=== PATIENT | male | born 1970 | race Caucasian/White ===

== ENCOUNTER 2018-06-15 11:40 | Emergency (ER) | payer SELFPAY ==
[2018-06-15] MEDS ORDERED: NA CHLORIDE 0.9% 1,000 ML ONE ×2 (12:28→13:02)
[2018-06-15] MEDS ORDERED: METOPROLOL TARTRATE 5 MG/5 ML INJ IV ONE (12:28)
[2018-06-15 12:45] LABS: Absolute Monocytes 0.7 K/uL (0.1-1.3); Absolute Neutrophil 8.8 K/uL (1.8-8.0); Basophils % 0.6 % (0-1.3); Eosinophils % 0.4 % (0-4.4); Hematocrit 52.2 % (39.6-49.0); Lymphocytes % 17.3 % (15.3-44.8); Monocytes % 5.9 % (3.3-12.3); RBC Red Blood Cell Count 5.84 M/uL (4.33-5.43)
[2018-06-15 12:50] LABS: Protime INR 1.17
--- NOTE | 2018-06-15 13:00 | RAD REPORT ---
EXAM DESCRIPTION: RAD - Chest Single View - 06/15/2018 12:53 pm CLINICAL HISTORY: PALPITATIONS Chest pain. COMPARISON: No comparisons FINDINGS: Portable technique limits examination quality. Mild interstitial pulmonary edema with small bilateral pleural effusions suspected. Poorly defined marissa ng opacity also noted medial right lung base. The heart is mildly prominent size. No displaced fractu res. IMPRESSION: Mild CHF versus volume overload suspected. Opacity medial right lung base may represent superimposed pneumonia or atelectasis.
[2018-06-15] MEDS ORDERED: Phenylephrine HCl 10 MG/ML 1 ML VIAL ONE ×2 (13:07→15:48)
[2018-06-15] MEDS ORDERED: GLUCAGON 1 MG/VIAL ONE (13:08)
[2018-06-15] MEDS ORDERED: NOREPINEPHRINE 4mg/D5W 250mL 4 MG/250 ML BAG IV ONE (13:11)
[2018-06-15] MEDS ORDERED: ONDANSETRON 4 MG/2 ML VIAL ONE (13:13)
[2018-06-15] MEDS ORDERED: NA CHLORIDE 0.9% 100 ML IV ONE ×2 (13:13)
[2018-06-15] MEDS ORDERED: RSI MEDICATION KIT IV ONE (13:18)
[2018-06-15 13:19] LABS: ALT/SGPT 40 U/L (12-78); AST/SGOT 15 U/L (15-37); Albumin 3.9 g/dL (3.4-5.0); Alkaline Phosphatase 99 U/L (45-117); BUN Blood Urea Nitrogen 12 mg/dL (7-18); Bicarbonate 26 mmol/L (21-32); Bilirubin Direct 0.3 mg/dL (0-0.2); Bilirubin Total 1.9 mg/dL (0.2-1.0); Glucose Level 120 mg/dL (74-106); Magnesium 2.4 mg/dL (1.8-2.4); NT PRO-BNP 2964 pg/mL (<125); Potassium 3.9 mmol/L (3.5-5.1); Protein, Total 7.5 g/dL (6.4-8.2); Sodium Level 142 mmol/L (136-145); Troponin (Emerg Dept Use Only) < 0.02 ng/mL (0.0-0.045)
[2018-06-15] MEDS ORDERED: ENOXAPARIN 80 MG/0.8 ML SQ ONE (13:23)
[2018-06-15] MEDS ORDERED: HEPARIN 5000 UNIT/ML 1 ML VIAL ONE (13:45)
[2018-06-15] MEDS ORDERED: HEPARIN/D5W 25,000 UNIT/500 ML BAG IV ONE (13:46)
[2018-06-15] MEDS ORDERED: DOBUTAMINE 250 MG/250 ML BAG IV ONE (13:55)
[2018-06-15 14:37] LABS: Arterial Blood Carboxyhemoglob 0.4 % (0-1.5); Blood Gas Oxyhemoglobin 9.9 % (94-97)
--- NOTE | 2018-06-15 14:55 | RAD REPORT ---
EXAM DESCRIPTION: CT - Chest For Pe Angio - 06/15/2018 2:29 pm CLINICAL HISTORY: Chest pain COMPARISON: None. TECHNIQUE: Dynamically enhanced axial 3 mm thick images of the chest were obtained during administra tion of <100> mL Isovue 370 IV contrast. Coronal and oblique reconstruction images were generated and reviewed. Exam utilizes a protocol for optimal evaluation of pulmonary arterial tree. Maximum intensity projections 3D imaging was utilized All CT scans are performed using dose optimization technique as appropriate and may include automated exposure control or mA/KV adjustment according to patient size. FINDINGS: A pulmonary embolus is not seen. A thoracic aortic aneurysm is not noted. Small to moderate bilateral pleural effusions with bibasilar atelectasis. Minimal opacities are prese nt within the upper lobes A pericardial effusion is not seen. IMPRESSION: Negative for a pulmonary embolism. Small to moderate bilateral pleural effusions
[2018-06-15] MEDS ORDERED: D5W 250 ML IV ONE (15:48)
--- NOTE | 2018-06-15 16:08 | ER ---
Nurse's Notes [facility] Name: Pan Fonseca Age: 48 yrs Sex: Male : 1970 Arrival Date: 06/15/2018 Time: 11:46 Bed 3 Private MD: None, None Diagnosis: Cardiomyopathy;Cardiogenic shock Presentation: 06/15 12:05 Presenting complaint: Patient states: Chest tightness and shortness of breath since ajJune 12. States that he was having some flu like symptoms and thought it was because of that, but his flu symptoms have now resolved and he is still having the chest tightness and shortness of breath. Patient reports that he was seen at [place] [facility] yesterday and the doctor told him he needed to be transferred to the hospital and admitted, but he left AMA. Patient denies pain at this time, reports palpitations and shortness of breath that is worse when he lays down or bends over. 12:05 Transition of care: patient was not received from another setting of care. Onset of aj1 symptoms was June 12, 2018. Risk Assessment: Do you want to hurt yourself or someone else? Patient reports no desire to harm self or others. Initial Sepsis Screen: Does the patient meet any 2 criteria? HR > 90 bpm. No. Patient's initial sepsis screen is negative. Does the patient have a suspected source of infection? No. Patient's initial sepsis screen is negative. Care prior to arrival: None. 12:05 Method Of Arrival: Wheelchair aj1 12:05 Acuity: JOHN 2 aj1 Triage Assessment: 12:48 General: Appears in no apparent distress. uncomfortable, Behavior is cooperative, aj1 anxious. Pain: Denies pain. Historical: - Allergies: 12:48 No Known Allergies; aj1 - Home Meds: 12:48 None [Active]; aj1 - PMHx: 12:48 None; aj1 - PSHx: 12:48 None; aj1 - Immunization history:: Flu vaccine is not up to date. - Social history:: Smoking status: Patient/guardian denies using tobacco. - Ebola Screening: : Patient denies travel to an Ebola-affected area in the 21 days before illness onset. Screenin:05 Abuse screen: Denies threats or abuse. Denies injuries from another. Nutritional aj1 screening: No deficits noted. Tuberculosis screening: No symptoms or risk factors identified. 18:11 Fall Risk No fall in past 12 months (0 pts). No secondary diagnosis (0 pts). IV access aj1 (20 points). Ambulatory Aid- None/Bed Rest/Nurse Assist (0 pts). Gait- Normal/Bed Rest/Wheelchair (0 pts) Mental Status- Oriented to own ability (0 pts). Total Berkowitz Fall Scale indicates No Risk (0-24 pts). Assessment: 12:10 General: Appears in no apparent distress. comfortable, Behavior is calm, cooperative, aj1 appropriate for age. Pain: Denies pain. Neuro: Level of Consciousness is awake, alert, obeys commands. Cardiovascular: Reports palpitations, shortness of breath, Heart tones S1 S2 present Patient's skin is warm and dry. Rhythm is atrial fibrillation with rapid ventricular response. Respiratory: Reports shortness of breath that is worse when he bends over or lays down Airway Respiratory effort is even, unlabored, Respiratory pattern is regular, symmetrical. GI: No signs and/or symptoms were reported involving the gastrointestinal system. Abdomen is flat, non-distended. : No signs and/or symptoms were reported regarding the genitourinary system. EENT: No signs and/or symptoms were reported regarding the EENT system. Derm: No signs and/or symptoms reported regarding the dermatologic system. Skin is pink, warm \T\ dry. normal. Musculoskeletal: No signs and/or symptoms reported regarding the musculoskeletal system. Circulation, motion, and sensation intact. 12:42 Reassessment: Patient states that he is feeling better after administration of IV aj1 Lopressor. 12:47 Reassessment: Patient is cyanotic, and hypotensive. BP 68/42 HR 126. MARINO Alejandro at aj1 bedside. IV fluids placed on pressure infuser, additional liter of NS started per orders. 13:05 Reassessment: Patient remains hypotensive and cyanotic. Levophed infusion started. aj1 13:10 Reassessment: Central line placed to right groin by MARINO Sparks. aj1 13:14 Reassessment: pt hs decompensated, Dr. Helton at bedside, Harish at bedside, Nelly, and gavin Neff. preparing for intubaltion, central line has been inserted. 13:20 Reassessment: Patient's color has begun to improve, but patient remains hypotensive. aj1 Phenylephrine drip started. 13:30 Reassessment: BP has begun to improve, will continue to monitor. Patient remains aj1 confused, agitated. 14:15 Reassessment: Pt transported to CT via stretcher, accompanied by myself, Nelly RN, ajMARINO Odom and Eric tolliver. 14:37 Reassessment: pt returned to room from CT. aj1 14:40 Reassessment: Patient remains agitated, states the he needs something to drink. aj1 Notified MARINO Sparks. Order received to give patient a small amount of ice chips. 14:45 Reassessment: Notified MARINO Sheppard of change in vital signs. aj1 14:45 Reassessment: Patient and/or family updated on plan of care and expected duration. Pain aj1 level reassessed. General: Appears distressed, Behavior is anxious, uncooperative. Neuro: Level of Consciousness is awake, alert, confused. Cardiovascular: skin is cyanotic to face and ears, but improving from previous. Rhythm is atrial fibrillation. Respiratory: Airway is patent Respiratory effort is even, unlabored, Respiratory pattern is regular, symmetrical. 14:46 Reassessment: Increased dobutamine to 10mcg/kg/min. aj1 15:45 Reassessment: Patient's skin color is pink. Patient is now alert and oriented. MARINO Brown at bedside to explain results to patient. 16:00 Reassessment: Patient and/or family updated on plan of care and expected duration. Pain aj1 level reassessed. General: Appears in no apparent distress. uncomfortable, Behavior is calm, cooperative, appropriate for age. Pain: Denies pain. Neuro: Level of Consciousness is awake, alert, obeys commands, Oriented to person, place, time, situation. Cardiovascular: Patient's skin is warm and dry. Rhythm is atrial fibrillation. Respiratory: Airway is patent Respiratory effort is even, unlabored, Respiratory pattern is regular, symmetrical, Breath sounds with rhonchi in left posterior lower lobe. Derm: No signs and/or symptoms reported regarding the dermatologic system. Skin is pink, warm \T\ dry. normal. 16:20 Reassessment: Jonny-Synephrine increased to 100 mcg/min. aj1 17:00 Reassessment: Patient appears in no apparent distress at this time. No changes from aj1 previously documented assessment. Patient and/or family updated on plan of care and expected duration. Pain level reassessed. Patient is alert, oriented x 3, equal unlabored respirations, skin warm/dry/pink. 17:30 Reassessment: Report given to Stephanie at [facility]. aj1 18:11 Reassessment: Patient appears in no apparent distress at this time. No changes from aj1 previously documented assessment. Patient and/or family updated on plan of care and expected duration. Pain level reassessed. Patient is alert, oriented x 3, equal unlabored respirations, skin warm/dry/pink. Vital Signs: 12:05 BP 136 / 99; Pulse 147; Resp 20; Pulse Ox 98% ; aj1 12:20 BP 121 / 106; Pulse 146; Resp 24; Pulse Ox 98% on R/A; aj1 12:27 BP 108 / 90; Pulse 136; aj1 12:35 BP 108 / 77; Pulse 130; aj1 12:42 BP 104 / 92; Pulse 122; aj1 12:47 BP 68 / 42; Pulse 126; aj1 13:04 BP 81 / 69; Pulse 115; aj1 13:07 BP 77 / 56; Pulse 115; aj1 13:15 BP 60 / 29; Pulse 134; Resp 28; Pulse Ox 92% on Non-rebreather mask; Weight 72.57 kg; ch Height 5 ft. 8 in. (172.72 cm); 13:19 BP 81 / 64; Pulse 120; aj1 13:27 BP 80 / 64; Pulse 115; aj1 13:33 BP 118 / 85; Pulse 113; aj1 13:40 BP 93 / 48; Pulse 103; aj1 13:52 BP 92 / 76; Pulse 112; aj1 14:00 BP 119 / 70; Pulse 115; Resp 20 S; Pulse Ox 96% on Non-rebreather mask; iw 14:11 BP 96 / 81; Pulse 110; Resp 20; Pulse Ox 95% on Non-rebreather mask; aj1 14:37 BP 98 / 66; Pulse 104; Resp 20; Pulse Ox 93% on Non-rebreather mask; aj1 14:45 BP 87 / 71; Pulse 104; Resp 20; Pulse Ox 95% on Non-rebreather mask; aj1 14:53 BP 91 / 80; Pulse 108; Resp 18; Pulse Ox 94% on Non-rebreather mask; aj1 15:00 BP 95 / 58; Pulse 111; Resp 20; Pulse Ox 94% on Non-rebreather mask; aj1 15:13 BP 102 / 84; Pulse 113; Resp 20; Pulse Ox 98% on Non-rebreather mask; aj1 15:32 BP 110 / 84; Pulse 118; Resp 18; Pulse Ox 100% on Non-rebreather mask; aj1 15:42 BP 101 / 78; Pulse 115; Resp 18; Pulse Ox 100% on Non-rebreather mask; aj1 15:57 BP 106 / 67; Pulse 119; Resp 26 S; Temp 97.8(A); Pulse Ox 100% on Non-rebreather mask; iw Pain 4/10; 16:15 BP 106 / 82; Pulse 121; Resp 24; Pulse Ox 100% on Non-rebreather mask; aj1 16:25 BP 103 / 86; Pulse 120; Resp 28; Pulse Ox 100% on Non-rebreather mask; aj1 16:45 BP 113 / 83; Pulse 120; Resp 28; Pulse Ox 98% on Non-rebreather mask; aj1 16:54 BP 117 / 83; Pulse 119; Resp 28; Pulse Ox 100% on Non-rebreather mask; aj1 17:15 BP 102 / 75; Pulse 115; Resp 28; Pulse Ox 98% on Non-rebreather mask; aj1 17:39 BP 108 / 83; Pulse 120; Resp 28; Pulse Ox 100% on Non-rebreather mask; aj1 18:00 BP 112 / 65; Pulse 118; Resp 26; Pulse Ox 100% on Non-rebreather mask; aj1 13:15 Body Mass Index 24.33 (72.57 kg, 172.72 cm) ch 13:15 levophed is infusing ch ED Course: 11:46 Patient arrived in ED. mr 11:46 None, None is Private Physician. mr 11:58 EKG done, by information technology director. reviewed by Cal Helton MD. at1 12:02 Cal Helton MD is Attending Physician. kdr 12:04 [facility]ish Jim[facility]nez [facility]. jr8 12:05 Patient has correct armband on for positive identification. Placed in gown. Bed in low aj1 position. Call light in reach. Side rails up X 1. lamp shade assembler on. Pulse ox on. NIBP on. 12:05 Arm band placed on. aj1 12:15 Initial lab(s) drawn, by me, sent to lab. Inserted saline lock: 20 gauge in right aj1 forearm, using aseptic technique. Blood collected. 12:29 Radiology exam delayed due to RN GIVING MEDS AND STATED SHE WOULD BE A WHILE, WILL CALL jb2 WHEN PT IS READY. 12:31 Pooja Hermosillo, RN is Primary Nurse. aj1 12:48 Triage completed. aj1 12:51 X-ray completed. Portable x-ray completed in exam room. Patient tolerated procedure ka well. 12:53 XRAY Chest (1 view) In Process Unspecified. EDMS 13:10 Assisted provider with central line placement. Set up central line tray. Triple lumen aj1 line placed in right femoral. Line placed by Harish PICHARDO Placement verified by blood return, Dressed with Tegaderm, Patient tolerated well. Before procedure, did Practitioner(s) obtain informed consent? Yes. Time-out/Briefing performed prior to start of procedure? Yes. Was handwashing/sanitizing done immediately prior to procedure? Yes. Was patient positioned to in a way to prevent air embolism? Yes. Was procedure site sterilized? Yes, with chlorhexidine. Was the site allowed to dry? Was local anesthetic and/or sedation utilized? Yes. During the procedure, did the Practitioner(s) maintain a sterile field? Yes. Were unused ports clamped during insertion? Yes. Was blood aspirated from each lumen? Yes. After the procedure, did the Practitioner(s) clean the site and apply a sterile dressing? Yes. 14:07 2D Echocardiogram with Doppler done by Ela Teacher. dt2 14:30 CT Chest For PE Angio In Process Unspecified. EDMS 18:12 Patient transferred, IV remains in place. aj1 18:14 One-on-one care X 330 minutes. aj1 Administered Medications: 12:20 Drug: NS 0.9% 1000 ml Route: IV; Rate: 1000 ml; Site: right forearm; aj1 13:45 Follow up: IV Status: Completed infusion; IV Intake: 1000ml aj1 12:20 Drug: Metoprolol 5 mg {Note: BP 121/106 HR 146.} Route: IVP; Site: left forearm; aj1 12:27 Drug: Metoprolol 5 mg {Note: BP 108/90 HR 136.} Route: IVP; Site: left forearm; aj1 12:35 Drug: Metoprolol 5 mg {Note: BP 108/77 HR 130.} Route: IVP; Site: right forearm; aj1 12:47 Follow up: Response: Adverse reaction, Physician notified; Blood pressure is lowered aj1 13:05 Drug: Levophed (4 mg/250 mL D5W 4 mcg/min Route: IV; Rate: calculated rate; Site: right ch femoral; 18:18 Follow up: IV Status: Infusion continued upon transfer aj1 13:16 Drug: Lovenox 70 mg Route: Sub-Q; Site: left lower abdomen; 13:45 Follow up: Response: No adverse reaction aj1 13:20 Drug: Jonny-Synephrine 100 mcg/min Route: IV; Rate: calculated rate; Site: right femoral; iw 18:19 Follow up: IV Status: Infusion continued upon transfer aj1 13:47 Drug: Heparin (DVT/PE Drip) 18 units/kg/hr - (HEParin 83360 units, D5W 500 ml) aj1 {Co-Signature: iw (Nelly Santacruz RN).} Route: IV; Rate: calculated rate; Site: right forearm; 18:19 Follow up: IV Status: Infusion continued upon transfer aj1 13:47 Drug: Heparin (DVT/PE- Bolus per protocol) - HEParin 80 units/kg {Co-Signature: iw aj1 (Nelly Santacruz RN).} Route: IVP; Site: right forearm; 14:30 Follow up: Response: No adverse reaction aj1 13:55 Drug: DOBUTamine (250 mg/250mL premix) 5 mcg/kg/min Route: IV; Rate: calculated rate; iw Site: right femoral; 18:22 Follow up: IV Status: Infusion continued upon transfer aj Intake: 13:45 IV: 1000ml; Total: 1000ml. aj1 Outcome: 16:07 ER care complete, transfer ordered by MD. hernandez 18:15 Transferred by helicopter to [facility], Transfer form completed. X-rays aj1 sent w/ patient. 18:15 critical 18:15 Discharge instructions given to patient, Instructed on the need for transfer, Demonstrated understanding of instructions. 18:22 Patient left the ED. aj1 Signatures: Dispatcher [employer] EDMS Nancy Benson, RN Pooja Shaw ch, RN RN aj1 Cal Helton MD MD kdr Rivera, Radha mr María, Yobani jb2 Nelly Santacruz RN RN iw Harish Jiménez PA PA jr8 Trudy Reed, chip washer EKG Tat1 Maria Luz Garcia Danielle dt2 Nelly Santacruz RN iw Corrections: (The following items were deleted from the chart) 14:55 14:51 Reassessment: aj1 aj1 15:21 12:47 Reassessment: Patient is cyanotic, and hypotensive. BP 68/42 HR 126. sal Alejandro at bedside. IV fluids placed on pressure infuser, additional liter of NS started per orders Reassessment: Patient is cyanotic, and hypotensive. BP 68/42 HR 126. MARINO Alejandro at bedside. IV fluids placed on pressure infuser, additional liter of NS started per orders aj1 16:42 14:05 Metoprolol 5 mg IVP in right forearm aj1 aj1
--- NOTE | 2018-06-15 16:09 | EDPHYS ---
Physician Documentation [facility] Name: Pan Fonseca Age: 48 yrs Sex: Male : 1970 Arrival Date: 06/15/2018 Time: 11:46 Bed 3 Private MD: None, None ED Physician Cal Helton HPI: 06/15 12:36 This 48 yrs old Male presents to ER via Unassigned with complaints of jr8 Palpitations. 12:36 The patient presents with a history of irregular heart beat, heart racing. Context: The jr8 symptoms occur at rest. Onset: The symptoms/episode began/occurred gradually, 4 day(s) ago. Duration: The patient or guardian reports multiple episodes. Modifying factors: The symptoms are aggravated by nothing. The symptoms are alleviated by nothing. Associated signs and symptoms: Pertinent positives: SOB. Severity of symptoms: At their worst the symptoms were moderate in the emergency department the symptoms are unchanged. The patient has not experienced similar symptoms in the past. The patient has not recently seen a physician. Patient stated that he had flu like symptoms about a week ago. Noticed that his heart felt irregular since then and has shortness of breath . Historical: - Allergies: 12:48 No Known Allergies; aj1 - Home Meds: 12:48 None [Active]; aj1 - PMHx: 12:48 None; aj1 - PSHx: 12:48 None; aj1 - Immunization history:: Flu vaccine is not up to date. - Social history:: Smoking status: Patient/guardian denies using tobacco. - Ebola Screening: : Patient denies travel to an Ebola-affected area in the 21 days before illness onset. ROS: 12:36 Eyes: Negative for injury, pain, redness, and discharge, ENT: Negative for injury, jr8 pain, and discharge, Neck: Negative for injury, pain, and swelling, Abdomen/GI: Negative for abdominal pain, nausea, vomiting, diarrhea, and constipation, Back: Negative for injury and pain, MS/Extremity: Negative for injury and deformity, Skin: Negative for injury, rash, and discoloration, Neuro: Negative for headache, weakness, numbness, tingling, and seizure. 12:36 Cardiovascular: Positive for palpitations, Negative for chest pain, edema, orthopnea. 12:36 Respiratory: Positive for shortness of breath, Negative for cough, dyspnea on exertion, sputum production, wheezing. Exam: 12:36 Eyes: Pupils equal round and reactive to light, extra-ocular motions intact. Lids and jr8 lashes normal. Conjunctiva and sclera are non-icteric and not injected. Cornea within normal limits. Periorbital areas with no swelling, redness, or edema. ENT: Nares patent. No nasal discharge, no septal abnormalities noted. Tympanic membranes are normal and external auditory canals are clear. Oropharynx with no redness, swelling, or masses, exudates, or evidence of obstruction, uvula midline. Mucous membranes moist. Neck: Trachea midline, no thyromegaly or masses palpated, and no cervical lymphadenopathy. Supple, full range of motion without nuchal rigidity, or vertebral point tenderness. No Meningismus. Respiratory: Lungs have equal breath sounds bilaterally, clear to auscultation and percussion. No rales, rhonchi or wheezes noted. No increased work of breathing, no retractions or nasal flaring. Abdomen/GI: Soft, non-tender, with normal bowel sounds. No distension or tympany. No guarding or rebound. No evidence of tenderness throughout. Back: No spinal tenderness. No costovertebral tenderness. Full range of motion. Skin: Warm, dry with normal turgor. Normal color with no rashes, no lesions, and no evidence of cellulitis. MS/ Extremity: Pulses equal, no cyanosis. Neurovascular intact. Full, normal range of motion. Neuro: Awake and alert, GCS 15, oriented to person, place, time, and situation. Cranial nerves II-XII grossly intact. Motor strength 5/5 in all extremities. Sensory grossly intact. Cerebellar exam normal. Normal gait. 12:36 Cardiovascular: Rate: tachycardic, Rhythm: irregularly irregular, Pulses: Pulses are 2+ in right radial artery and left radial artery. Heart sounds: normal, normal S1and S2, no S3 or S4, no murmur, no rub, no gallop, Edema: is not appreciated, JVD: is not appreciated. Vital Signs: 12:05 BP 136 / 99; Pulse 147; Resp 20; Pulse Ox 98% ; aj1 12:20 BP 121 / 106; Pulse 146; Resp 24; Pulse Ox 98% on R/A; aj1 12:27 BP 108 / 90; Pulse 136; aj1 12:35 BP 108 / 77; Pulse 130; aj1 12:42 BP 104 / 92; Pulse 122; aj1 12:47 BP 68 / 42; Pulse 126; aj1 13:04 BP 81 / 69; Pulse 115; aj1 13:07 BP 77 / 56; Pulse 115; aj1 13:15 BP 60 / 29; Pulse 134; Resp 28; Pulse Ox 92% on Non-rebreather mask; Weight 72.57 kg; ch Height 5 ft. 8 in. (172.72 cm); 13:19 BP 81 / 64; Pulse 120; aj1 13:27 BP 80 / 64; Pulse 115; aj1 13:33 BP 118 / 85; Pulse 113; aj1 13:40 BP 93 / 48; Pulse 103; aj1 13:52 BP 92 / 76; Pulse 112; aj1 14:00 BP 119 / 70; Pulse 115; Resp 20 S; Pulse Ox 96% on Non-rebreather mask; iw 14:11 BP 96 / 81; Pulse 110; Resp 20; Pulse Ox 95% on Non-rebreather mask; aj1 14:37 BP 98 / 66; Pulse 104; Resp 20; Pulse Ox 93% on Non-rebreather mask; aj1 14:45 BP 87 / 71; Pulse 104; Resp 20; Pulse Ox 95% on Non-rebreather mask; aj1 14:53 BP 91 / 80; Pulse 108; Resp 18; Pulse Ox 94% on Non-rebreather mask; aj1 15:00 BP 95 / 58; Pulse 111; Resp 20; Pulse Ox 94% on Non-rebreather mask; aj1 15:13 BP 102 / 84; Pulse 113; Resp 20; Pulse Ox 98% on Non-rebreather mask; aj1 15:32 BP 110 / 84; Pulse 118; Resp 18; Pulse Ox 100% on Non-rebreather mask; aj1 15:42 BP 101 / 78; Pulse 115; Resp 18; Pulse Ox 100% on Non-rebreather mask; aj1 15:57 BP 106 / 67; Pulse 119; Resp 26 S; Temp 97.8(A); Pulse Ox 100% on Non-rebreather mask; iw Pain 4/10; 16:15 BP 106 / 82; Pulse 121; Resp 24; Pulse Ox 100% on Non-rebreather mask; aj1 16:25 BP 103 / 86; Pulse 120; Resp 28; Pulse Ox 100% on Non-rebreather mask; aj1 16:45 BP 113 / 83; Pulse 120; Resp 28; Pulse Ox 98% on Non-rebreather mask; aj1 16:54 BP 117 / 83; Pulse 119; Resp 28; Pulse Ox 100% on Non-rebreather mask; aj1 17:15 BP 102 / 75; Pulse 115; Resp 28; Pulse Ox 98% on Non-rebreather mask; aj1 17:39 BP 108 / 83; Pulse 120; Resp 28; Pulse Ox 100% on Non-rebreather mask; aj1 18:00 BP 112 / 65; Pulse 118; Resp 26; Pulse Ox 100% on Non-rebreather mask; aj1 13:15 Body Mass Index 24.33 (72.57 kg, 172.72 cm) ch 13:15 levophed is infusing ch Procedures: 17:13 Central Line: the site was prepped with Betadine, in sterile fashion, a triple lumen jr8 catheter was inserted, in the right femoral vein, in 1 attempts. placement was verified, by blood return, the site was dressed with 4X4s, Tegaderm, foam tape, using sterile technique, the patient tolerated the procedure, well. MDM: 12:04 Patient medically screened. jr8 14:30 ED course: Patient had been feeling better after metoprolol. After several minutes of jr8 having medication administered and finished. Patient started to acutely decompensate. Patient became hypoxic and purple from neck up along with hypotension. HR maintained at a rate of 108-120 atrial fib RVR which had improved from the 160-170 original HR. Central line and high flow oxygen immediately administered along with Levophed. Patient ended up needing phenylephrine and dobutamine as stat echo reveled EF of 20% with global hypokinesis. No PE found on CT. Suspect cardiomyopathy from the virus that he just finished getting over this week. . ED course: Patient continues to improve. Blood pressure has stabilized and color in face has drastically improved. It is in Dr. Xiong and my opinion that patient does not need to be intubated at this time. Will continuously monitor for now. Patient going via life flight to [facility] . 15:58 Data reviewed: vital signs, nurses notes, lab test result(s), EKG, radiologic studies, jr8 CT scan, plain films, ultrasound. ED course: Scientologist accepted patient to CCU. 17:13 ED course: VBG improving. Patient's blood pressure maintaining at acceptable level. jr8 06/15 12:03 Order name: Basic Metabolic Panel; Complete Time: 13:24 kdr 06/15 12:03 Order name: CBC with Diff; Complete Time: 12:48 kdr 06/15 12:03 Order name: LFT's; Complete Time: 13:24 kdr 06/15 12:03 Order name: Magnesium; Complete Time: 13:24 kdr 06/15 12:03 Order name: NT PRO-BNP; Complete Time: 13:24 kdr 06/15 12:03 Order name: PT-INR; Complete Time: 13:24 kdr 06/15 12:03 Order name: Troponin (emerg Dept Use Only); Complete Time: 13:24 kdr 06/15 12:03 Order name: XRAY Chest (1 view); Complete Time: 13:24 kdr 06/15 13:27 Order name: Echo w/ Doppler 06/15 14:12 Order name: CT Chest For PE Angio; Complete Time: 15:09 jr8 06/15 14:38 Order name: ABG Arterial Blood Gas; Complete Time: 14:42 EDMS 06/15 16:28 Order name: ABG Arterial Blood Gas; Complete Time: 16:37 EDMS 06/15 11:51 Order name: EKG; Complete Time: 11:52 06/15 12:03 Order name: Cardiac monitoring; Complete Time: 12:44 kdr 06/15 12:03 Order name: EKG - Nurse/Tech; Complete Time: 12:44 kdr 06/15 12:03 Order name: IV Saline Lock; Complete Time: 12:44 kdr 06/15 12:03 Order name: Labs collected and sent; Complete Time: 12:44 kdr 06/15 12:03 Order name: O2 Per Protocol; Complete Time: 12:44 kdr 06/15 12:03 Order name: O2 Sat Monitoring; Complete Time: 12:45 kdr Administered Medications: 12:20 Drug: NS 0.9% 1000 ml Route: IV; Rate: 1000 ml; Site: right forearm; aj1 13:45 Follow up: IV Status: Completed infusion; IV Intake: 1000ml aj1 12:20 Drug: Metoprolol 5 mg {Note: BP 121/106 HR 146.} Route: IVP; Site: left forearm; aj1 12:27 Drug: Metoprolol 5 mg {Note: BP 108/90 HR 136.} Route: IVP; Site: left forearm; aj1 12:35 Drug: Metoprolol 5 mg {Note: BP 108/77 HR 130.} Route: IVP; Site: right forearm; aj1 12:47 Follow up: Response: Adverse reaction, Physician notified; Blood pressure is lowered aj1 13:05 Drug: Levophed (4 mg/250 mL D5W 4 mcg/min Route: IV; Rate: calculated rate; Site: right ch femoral; 18:18 Follow up: IV Status: Infusion continued upon transfer aj1 13:16 Drug: Lovenox 70 mg Route: Sub-Q; Site: left lower abdomen; 13:45 Follow up: Response: No adverse reaction aj1 13:20 Drug: Jonny-Synephrine 100 mcg/min Route: IV; Rate: calculated rate; Site: right femoral; iw 18:19 Follow up: IV Status: Infusion continued upon transfer aj1 13:47 Drug: Heparin (DVT/PE Drip) 18 units/kg/hr - (HEParin 05155 units, D5W 500 ml) aj {Co-Signature: iw (Nelly Santacruz RN).} Route: IV; Rate: calculated rate; Site: right forearm; 18:19 Follow up: IV Status: Infusion continued upon transfer aj1 13:47 Drug: Heparin (DVT/PE- Bolus per protocol) - HEParin 80 units/kg {Co-Signature: [facility] (Nelly Santacruz RN).} Route: IVP; Site: right forearm; 14:30 Follow up: Response: No adverse reaction [facility] 13:55 Drug: DOBUTamine (250 mg/250mL premix) 5 mcg/kg/min Route: IV; Rate: calculated rate; iw Site: right femoral; 18:22 Follow up: IV Status: Infusion continued upon transfer aj Disposition: 06/15/18 16:07 Transfer ordered to [facility]. Diagnosis are Cardiomyopathy, Cardiogenic shock. - Reason for transfer: Higher level of care. - Accepting physician is Dr. Dubois. - Condition is Serious. - Problem is new. - Symptoms have improved. Critical care time excluding procedures: 17:13 Critical care time: Bedside Care: 30 minutes, Consultation: 20 minutes, Family jr8 Intervention: 10 minutes. Total time: 60 minutes Signatures: Dispatcher [employer] Nancy Higgins, RN Pooja Shaw ch, RN RN aj1 Cal Helton MD MD kdr Williams, Irene, RN RN iw Harish Jiménez PA PA jr8 Nelly Santacruz RN iw Corrections: (The following items were deleted from the chart) 17:16 16:07 06/15/2018 16:07 Transfer ordered to [facility]. Diagnosis is jr8 Cardiomyopathy; Cardiogenic shock. Reason for transfer: Higher level of care. Accepting physician is Scientologist . Condition is Serious. Problem is new. Symptoms have improved. jr8 18:22 17:16 06/15/2018 16:07 Transfer ordered to [facility]. Diagnosis is aj1 Cardiomyopathy; Cardiogenic shock. Reason for transfer: Higher level of care. Accepting physician is Dr. Dubois. Condition is Serious. Problem is new. Symptoms have improved. jr8
[2018-06-15 16:35] LABS: Arterial Blood Carboxyhemoglob 0.5 % (0-1.5); Blood Gas Oxyhemoglobin 39.4 % (94-97)
[2018-06-15] MEDS ORDERED: NOREPINEPHRINE 4 MG in D5W 250 ML IV PRN (17:07)
--- NOTE | 2018-06-16 13:58 | EKG ---
Test Date: 2018-06-15 Test Time: 11:58:53 Interpreter Translator: JOHN MEASUREMENT RESULTS: Intervals: Rate: 146 [place]: QRSD: 80 QT: 312 QTc: 486 [place]: P: [place]: QRS: 58 T: -61 INTERPRETIVE STATEMENTS: Atrial fibrillation with rapid ventricular response Minimal voltage criteria for LVH, may be normal variant Nonspecific T wave abnormality Abnormal ECG No previous ECG available for comparison Electronically Signed On 06-16-18 13:54:23 SCHEDULING ANALYST by [place]co [place]
--- NOTE | 2018-06-18 08:13 | ECHO ---
HEIGHT: 5 ft 8 in WEIGHT: 160 lb 0 oz DATE OF STUDY: 06/15/[address]: Jeff Jiménez 2-DIMENSIONAL: YES M.MODE: YES DOPPLER: YES COLOR FLOW: YES TDS: NO PORTABLE: NO DEFINITY: NO BUBBLE STUDY: NO DIAGNOSIS: PE CARDIAC HISTORY: CATHERIZATION: SURGERY: PROSTHETIC VALVE: PACEMAKER: MEASUREMENTS (cm) DIASTOLIC (NORMALS) SYSTOLIC (NORMALS) IVSd 1.1 (0.6-1.2) LA Diam 4.1 (1.9-4.0) LVEF 15-20% LVIDd 4.4 (3.5-5.7) LVIDs 4.0 (2.0-3.5) %FS 11% LVPWd 1.1 (0.6-1.2) Ao Diam 2.4 (2.0-3.7) 2 DIMENSIONAL ASSESSMENT: RIGHT ATRIUM: NORMAL LEFT ATRIUM: DILATED RIGHT VENTRICLE: NORMAL LEFT VENTRICLE: NORMAL SIZE TRICUSPID VALVE: NORMAL MITRAL VALVE: POOR EXCURSION PULMONIC VALVE: NOT SEEN AORTIC VALVE: NORMAL PERICARDIAL EFFUSION: NONE AORTIC ROOT: NORMAL LEFT VENTRICULAR WALL MOTION: SEVERE GLOBAL HYPOKINESIS. DOPPLER/COLOR FLOW: MILD TO MODERATE MITRAL REGURGITATION. MILD TRICUSPID REGURGITATION. MILD PULMONARY HYPERTENSION. RIGHT VENTRICULAR SYSTOLIC PRESSURE 53mmHg. COMMENTS: SEVERE GLOBAL HYPOKINESIS. LEFT VENTRICULAR EJECTION FRACTION 15-20%. ATRIAL FIBRILLATION NOTED. MILD TO MODERATE MITRAL REGURGITATION. MILD TRICUSPID REGURGITATION. MILD PULMONARY HYPERTENSION. NO THROMBUS. MILD LEFT ATRIAL ENLARGEMENT. TECHNOLOGIST: Olga CARROLL
== END 2018-06-15 18:22 | disposition short-term general hospital (02) ==
LOC: ER 11:40
PROC: 06HT33Z Insertion of Infusion Device into Right Foot Vein, Percutaneous Approach (ICD-10-PCS; principal; 2018-06-15)
DX: R57.0 Cardiogenic shock (principal); I42.9 Cardiomyopathy, unspecified
CPT/HCPCS: 36415; 71045; 71275; 80048; 80076; 82805; 83735; 83880; 84484; 85025; 85610; 93005; 93306; 96372; 99291; 99292; J1250; J1610; J1644; J1650; J2370; J2405; J7030; J7060; Q9967